=== PATIENT | male | born 1935 | race Caucasian/White ===

== ENCOUNTER → 2024-02-18 | Outpatient (CLI) | payer MEDICARE, OTHER, SELFPAY ==
[2024-02-18 15:26] LABS: Basophils # (Auto) 0.1 Thou/mm3 (0.0-0.2); Basophils % (Auto) 2 % (0-2.5); Eosinophils # (Auto) 0.3 Thou/mm3 (0.0-0.5); Eosinophils % (Auto) 6 % (0-10); Hematocrit 35.9 % (41.0-53.0); Hemoglobin 11.8 g/dL (13.5-16.0); Immature Granulocytes % (Auto) 0 % (0-0); Immature Granulocytes Auto 0.01 Thou/mm3 (0.00-0.00); Lymphocytes # (Auto) 1.3 Thou/mm3 (1.0-4.8); Lymphocytes % (Auto) 31 % (10-50); Mean Corpuscular HGB Conc 32.9 g/dl (31.0-37.0); Mean Corpuscular Hemoglobin 31.1 pg (25.0-35.0); Mean Corpuscular Volume 95 fL (80-100); Monocytes # (Auto) 0.7 Thou/mm3 (0.0-0.8); Monocytes % (Auto) 16 % (0-12); Neutrophils # (Auto) 1.8 Thou/mm3 (1.8-7.7); Neutrophils % (Auto) 44 % (37-80); Nucleated Red Blood Cell % 0 /100 WBC (0); Platelet Count 153 Thou/mm3 (140-440); RDW Standard Deviation 54.9 fL (35.1-43.9); White Blood Count 4.1 Thou/mm3 (3.8-10.6)
[2024-02-18 15:41] LABS: Folate 23.76 ng/mL (>5.38); Vitamin B12 264 pg/mL (211-911)
[2024-02-18 15:44] LABS: Ferritin 18 ng/mL (10.5-307.3); Total Iron Binding Capacity 353 mcg/dL (250-425)
[2024-02-18 15:46] LABS: Alanine Aminotransferase 16 U/L (10-49); Albumin, Serum 4.1 gm/dL (3.4-4.8); Albumin/Globulin Ratio 1.5 (1.2-2.2); Alkaline Phosphatase 58 U/L (46-116); Anion Gap 6 (7-16); Aspartate Amino Transferase 21 U/L (0-34); BUN/Creatinine Ratio 20 Ratio (12-20); Bilirubin,Total 0.7 mg/dL (0.3-1.2); Blood Urea Nitrogen 20 mg/dL (9-23); Calcium 9.2 mg/dL (8.3-10.6); Calcium (Corrected) 9.2 mg/dL (8.5-10.1); Carbon Dioxide 30.3 mMol/L (20.0-31.0); Chloride 104 mMol/L (98-107); Globulin 2.8 gm/dL (2.3-3.5); Glucose 88 mg/dL (74-106); Osmolality,Calculated 281 (275-295); Potassium 3.3 mMol/L (3.4-5.1); Sodium 140 mMol/L (136-145); Total Protein 6.9 gm/dL (5.7-8.2); eGFR > 60 See Note
[2024-02-18 15:54] LABS: Iron 76 mcg/dL (65-175); Percent Iron Saturation 21 % (20-55); Unsaturated Iron Binding 277 (225-295)
[2024-02-23 03:04] LABS: Albumin 3.8 g/dL (3.8-4.8); Alpha-1-Globulin 0.2 g/dL (0.2-0.3); Alpha-2-Globulin 0.5 g/dL (0.5-0.9); Beta-1-Globulin 0.4 g/dL (0.4-0.6); Beta-2-globulin 0.4 g/dL (0.2-0.5); Gamma Globulin 1.3 g/dL (0.8-1.7); Kappa Light Chain, Free 53.5 mg/L (3.3-19.4); Lambda Light Chain, Free 27.1 mg/L (5.7-26.3)
[2024-02-24 07:40] LABS: Kappa/Lambda, Free Ratio 1.97 (0.26-1.65); Protein, total, serum 6.8 g/dL (6.1-8.1)
== END | disposition home or self-care (01) ==
LOC: SCTO 13:29
PROVIDERS: PCP Family Medicine; Referring Provider Internal Medicine Hematology & Oncology; Visit Provider Internal Medicine Hematology & Oncology
DX: C90.01 Multiple myeloma in remission (principal)
CPT/HCPCS: 36415; 80053; 82607; 82728; 82746; 83521; 83540; 83550; 84153; 84155; 84165; 85025; 86334

== ENCOUNTER 2024-03-02 13:10 | Outpatient (RCR) | payer MEDICARE, OTHER, SELFPAY ==
--- NOTE | 2024-03-03 06:35 | CTCFLWUP_ITS ---
Patient: JUAN MOSS : 1935 Page 4 of 4 FOLLOW UP NOTE DATE OF SERVICE: 03/02/2024 NAME: JUAN MOSS ACCOUNT: [id number] : 1935 AGE: 88 DIAGNOSIS: 1.multiple myeloma status post bone marrow transplantation (07/24/2012), currently on Revli mid 5 mg p.o. daily. #2 urinary frequency #3 frailty from advanced age as well as medical conditions REASON FOR TODAY?S VISIT patient is 88-year-old male who is accompanied by his to the clinic vis it. Patient is here to review his bone scan. He feels fatigued tired. He has been feeling this for many months. He takes his Revlimid as prescribed and tolerating well HISTORY OF PRESENT ILLNESS: Juan Browning is a 88-year-old male with history of multiple myeloma status post bone marrow transplantation at [facility] on 07/24/2012. Since then he has been on main tenance Revlimid. 09/29/2018: Serum immunofixation studies did not show any monoclonal proteins. [place] titative immunoglobulin level showed IgA levels to be 441. Upper limit of normal is 320. 04/13/2019: Serum immunofixation studies show trace concentration band in the gamma region as describe d above. IgA 463 (70?320). 07/13/2019: IgA 473 (70?320) 08/05/2019: Bone marrow biopsy and aspiration? 08/17/2019: X-ray of the lumbar spine? 09/08/2019: Bone density test? 04/21/2020: B12 level 193. 10/10/2020: Hemoglobin 12.3, WBC 3.5, ANC 1.6, platelets 168,000. Creatinine 0.9, IgA 438, IgG 1176. [place]/lambda ratio 1.59. 02/13/2021: CT scan of the abdomen and pelvis with out IV contrast? 11/28/2021 Quantitative immunoglobulin levels? 05/24/2022: Lab 11/28/2022: IgA 481, IgG 1343. 06/10/2023: No monoclonal proteins were identified on immunofixation electrophoresis. PAST MEDICAL HISTORY: PAST SURGICAL HISTORY: MEDICATIONS: 1. Adult Low Dose Aspirin - 81 mg Each Day 2. amlodipine - 5 mg Each Day 3. Calcium with Vitamin D - 2 tab Daily 4. lenalidomide - 5 mg 1 Capsule Daily 5. oxycodone - 5 mg Every 4 Hours 6. POTASSIUM - 1 tab Daily 7. tamsulosin - 0.4 mg 1 Capsule Daily Medications Last Reconciled by Ashley Malone MA on 06/19/2023 ALLERGIES: No Known Drug Allergies REVIEW OF SYSTEMS: Neurological: No headache, seizures or blurring of vision. Gastrointestinal: No nausea, vomiting, diarrhea or constipation. Cardiovascular: No palpitations or angina pains. Respiratory: No cough, chest pain or shortness of breath. PHYSICAL EXAMINATION: VITAL SIGNS: Alert oriented x 4 ECOG Performance Status: 2 - Symptomatic; ambulatory; capable of self-care; >50% of waking hrs. not i n bed Frail male neck is supple. No adenopathy in the neck, axillary and inguinal region. Chest clear to auscultation. No wheezes or rails audible. CVS rhythm regular. No murmurs or gallops present. Abdomen is soft. Extremities no clubbing or cyanosis noted. 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 Moss is on maintenance Revlimid 5 mg p.o. daily. Bone marrow biopsy and aspiration (08/05/2019) negative for myeloma. Labs reviewed serum immunofixation shows no monoclonal proteins detected by immunofixation studies Beta-2 microglobulin 2.35 I discussed with the patient that he is becoming anemic since last 2 to 3 years and also his kidney f unction has gone down Serum immunofixation and SPEP do not indicate any myeloma His beta-2 microglobulin [place] lambda chain ratio have mildly increased Bone scan is concerning for lesions in the spine as shown hypermetabolism Will do bone marrow biopsy RTC after the bone marrow biopsy results and labs #2 chronic low water intake secondary to frequent micturition likely from BPH all his lab abnormalities can be from his kidney Patient do not drink enough water Patient does not want to use bathroom again and again and have not followed up with urology recommend ation PSA resulted back as normal Electronically signed by Dr Thorne CC: Bakari?Ronnie,? PCP: Janeth Hsu Referring: Janeth Hsu This document was completed utilizing speech recognition software. Grammatical errors, random word in sertions, pronoun errors, and incomplete sentences are an occasional consequence of this system due t o software limitations, ambient noise, and hardware issues. Any formal questions or concerns about th e content, text or information contained within the body of this dictation should be directly address ed to the provider for clarification.
== END 2024-03-31 23:59 | disposition home or self-care (01) ==
LOC: SCTC 13:10
PROVIDERS: PCP Family Medicine; Referring Provider Family Medicine; Visit Provider Internal Medicine Hematology & Oncology
DX: Z08 Encounter for follow-up examination after completed treatment for malignant neoplasm (principal); Z85.79 Personal history of other malignant neoplasms of lymphoid, hematopoietic and related tissues; Z94.81 Bone marrow transplant status
CPT/HCPCS: 99212; G0463

== ENCOUNTER → 2024-03-09 | Outpatient (CLI) | payer MEDICARE, OTHER, SELFPAY ==
[2024-03-09 16:46] LABS: Basophils # (Auto) 0.1 Thou/mm3 (0.0-0.2); Basophils % (Auto) 2 % (0-2.5); Eosinophils # (Auto) 0.2 Thou/mm3 (0.0-0.5); Eosinophils % (Auto) 6 % (0-10); Hematocrit 34.8 % (41.0-53.0); Hemoglobin 11.5 g/dL (13.5-16.0); Immature Granulocytes % (Auto) 0 % (0-0); Immature Granulocytes Auto 0.01 Thou/mm3 (0.00-0.00); Lymphocytes # (Auto) 1.1 Thou/mm3 (1.0-4.8); Lymphocytes % (Auto) 30 % (10-50); Mean Corpuscular Hemoglobin 31.4 pg (25.0-35.0); Mean Corpuscular Volume 95 fL (80-100); Monocytes # (Auto) 0.6 Thou/mm3 (0.0-0.8); Monocytes % (Auto) 16 % (0-12); Neutrophils # (Auto) 1.7 Thou/mm3 (1.8-7.7); Neutrophils % (Auto) 46 % (37-80); Nucleated Red Blood Cell % 0 /100 WBC (0); Platelet Count 146 Thou/mm3 (140-440); RDW Standard Deviation 54.6 fL (35.1-43.9); Red Blood Count 3.66 Miln/mm3 (4.50-5.90); White Blood Count 3.7 Thou/mm3 (3.8-10.6)
[2024-03-09 17:01] LABS: Alanine Aminotransferase 32 U/L (10-49); Albumin/Globulin Ratio 1.5 (1.2-2.2); Alkaline Phosphatase 67 U/L (46-116); Anion Gap 8 (7-16); Aspartate Amino Transferase 37 U/L (0-34); BUN/Creatinine Ratio 21 Ratio (12-20); Bilirubin,Total 0.6 mg/dL (0.3-1.2); Blood Urea Nitrogen 19 mg/dL (9-23); Carbon Dioxide 29.7 mMol/L (20.0-31.0); Chloride 104 mMol/L (98-107); Creatinine (Component) 0.9 mg/dL (0.6-1.3); Globulin 2.7 gm/dL (2.3-3.5); Glucose 73 mg/dL (74-106); Osmolality,Calculated 284 (275-295); Potassium 3.6 mMol/L (3.4-5.1); Sodium 142 mMol/L (136-145); Total Protein 6.7 gm/dL (5.7-8.2); eGFR > 60 See Note
[2024-03-14 13:50] LABS: Albumin 3.6 g/dL (3.8-4.8); Alpha-1-Globulin 0.2 g/dL (0.2-0.3); Alpha-2-Globulin 0.5 g/dL (0.5-0.9); Beta-1-Globulin 0.5 g/dL (0.4-0.6); Beta-2-globulin 0.4 g/dL (0.2-0.5); Gamma Globulin 1.3 g/dL (0.8-1.7); Kappa Light Chain, Free 54.3 mg/L (3.3-19.4)
[2024-03-16 06:56] LABS: Kappa/Lambda, Free Ratio 1.87 (0.26-1.65); Protein, total, serum 6.5 g/dL (6.1-8.1)
== END | disposition home or self-care (01) ==
LOC: SCTO 15:41
PROVIDERS: PCP Family Medicine; Referring Provider Internal Medicine Hematology & Oncology; Visit Provider Internal Medicine Hematology & Oncology
DX: C90.01 Multiple myeloma in remission (principal)
CPT/HCPCS: 36415; 80053; 83521; 84155; 84165; 85025; 86334

== ENCOUNTER 2024-03-16 06:59 | Outpatient (CLI) | payer MEDICARE, OTHER, SELFPAY ==
[2024-03-16 07:54] LABS: Basophils # (Auto) 0.1 Thou/mm3 (0.0-0.2); Basophils % (Auto) 3 % (0-2.5); Eosinophils # (Auto) 0.1 Thou/mm3 (0.0-0.5); Eosinophils % (Auto) 3 % (0-10); Hematocrit 36.4 % (41.0-53.0); Immature Granulocytes % (Auto) 0 % (0-0); Immature Granulocytes Auto 0.01 Thou/mm3 (0.00-0.00); Lymphocytes % (Auto) 29 % (10-50); Mean Corpuscular Hemoglobin 31.3 pg (25.0-35.0); Mean Corpuscular Volume 95 fL (80-100); Monocytes # (Auto) 0.7 Thou/mm3 (0.0-0.8); Monocytes % (Auto) 20 % (0-12); Neutrophils # (Auto) 1.6 Thou/mm3 (1.8-7.7); Neutrophils % (Auto) 45 % (37-80); Nucleated Red Blood Cell % 0 /100 WBC (0); Platelet Count 169 Thou/mm3 (140-440); RDW Standard Deviation 53.3 fL (35.1-43.9); Red Blood Count 3.84 Miln/mm3 (4.50-5.90); White Blood Count 3.5 Thou/mm3 (3.8-10.6)
[2024-03-16 08:03] LABS: Partial Thromboplastin Time 25.8 Seconds (22.0-36.0); Prothrombin Time 10.9 Seconds (9.0-12.2)
[2024-03-16 08:07] LABS: Blood Urea Nitrogen 23 mg/dL (9-23); Estimated Creatinine Clearance 40.1 mL/min (>60); eGFR > 60 See Note
[2024-03-16 08:12] VITALS: BP 142/75; PULSE 64; RESP 16; TEMP 36.7; O2SAT 98
--- NOTE | 2024-03-16 08:30 | XR_ITS ---
Examination: CT-guided percutaneous bone marrow aspiration right posterior superior iliac crest CT-guided percutaneous bone biopsy deep right posterior superior iliac crest INDICATIONS: Diagnosis multiple myeloma Date and time of procedure: March 16, 2024 1013 hours Informed consent provided. A timeout was completed verifying correct patient, procedure, site and positioning. Technique: Axial 3 mm sections were obtained for localization of the right posterior superior iliac crest Appropriate area is marked. The patient's site was prepped and draped in sterile fashion Maximal sterile barrier technique utilized, including hand hygiene Local anesthesia was obtained with 1% lidocaine. Low dose protocols were performed. One or more of the following dose reduction techniques were used; automated exposure control, adjustment of the mA and/or KV according to patient size, use of iterative reconstruction technique. Utilizing CT fluoroscopic guidance 14-gauge bone biopsy needle placed in the posterior superior iliac crest on the right 5 cc marrow aspirate obtained 5 cm bone core obtained Patient appears in stable condition during this procedure. At completion of the procedure, the patient is in satisfactory condition. Estimated blood loss 2 cc Complete pathology report to follow. Impression: Successful CT-guided percutaneous bone marrow aspiration right posterior superior iliac crest Successful CT-guided bone biopsy deep right posterior superior iliac crest
[2024-03-16 08:38] LABS: Flow Cytometry* See Sep Rpt
[2024-03-16] MEDS: SODIUM CHLORIDE 0.9% 500 ML 100 ML 20 ML IV (09:22)
[2024-03-16] MEDS: fentaNYL CIT INJ 50 mCg/ML AMP 2ML 25 MCG IV (09:39)
[2024-03-16 10:37] VITALS: BP 117/54; PULSE 87; RESP 16; O2SAT 99
[2024-03-16 10:50] VITALS: BP 119/75; PULSE 91; RESP 16; O2SAT 99
[2024-03-16 11:12] VITALS: BP 108/73; PULSE 82; RESP 16; TEMP 36.7; O2SAT 97
== END 2024-03-16 11:35 | disposition home or self-care (01) ==
PROVIDERS: Radiology Diagnostic Radiology; PCP Family Medicine; Referring Provider Internal Medicine Hematology & Oncology; Visit Provider Internal Medicine Hematology & Oncology
DX: C90.01 Multiple myeloma in remission (principal); Z01.812 Encounter for preprocedural laboratory examination
CPT/HCPCS: 38221; 36415; 77012; 82565; 84520; 85025; 85610; 85730; J3010; J7040

== ENCOUNTER → 2024-04-06 | Outpatient (BNVA) | payer MEDICARE, OTHER, SELFPAY | END | disposition home or self-care (01) | PROVIDERS: PCP Family Medicine; Referring Provider Family Medicine; Visit Provider Urology | DX: N40.1 Benign prostatic hyperplasia with lower urinary tract symptoms (principal); N39.498 Other specified urinary incontinence; N13.8 Other obstructive and reflux uropathy; C90.00 Multiple myeloma not having achieved remission; I10 Essential (primary) hypertension; J44.9 Chronic obstructive pulmonary disease, unspecified | CPT/HCPCS: 81003; 99212; G0463 ==

== ENCOUNTER → 2024-05-06 | Outpatient (CLI) | payer MEDICARE, OTHER, SELFPAY ==
[2024-05-06 18:03] LABS: Amphetamine/Methamp Scrn,U Negative (Negative); Barbiturate Screen,Urine Negative (Negative); Benzodiazepines Screen,Urine Negative (Negative); Benzoylecgonine Screen, Ur Negative (Negative); Fentanyl Screen,Urine Negative (Negative); Opiate Screen,Urine Negative (Negative); THC Screen,Urine Negative (Negative)
== END | disposition home or self-care (01) ==
LOC: SLDO 16:21
PROVIDERS: PCP Family Medicine; Referring Provider Family Medicine; Visit Provider Family Medicine
DX: M54.12 Radiculopathy, cervical region (principal); Z71.51 Drug abuse counseling and surveillance of drug abuser
CPT/HCPCS: 80307

== ENCOUNTER 2024-05-07 13:07 | Outpatient (RCR) | payer MEDICARE, OTHER, SELFPAY ==
--- NOTE | 2024-05-10 22:20 | CTCFLWUP_ITS ---
Patient: JUAN MOSS : 1935 Page 3 of 4 FOLLOW UP NOTE DATE OF SERVICE: 05/07/2024 NAME: JUAN MOSS ACCOUNT: [id number] : 1935 AGE: 89 INTERVAL HISTORY: Patient is companied by his . Patient is here to follow-up on his bone marrow biopsy results. 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 daily. #2 urinary frequency #3 frailty from advanced age as well as medical conditions DATE OF DIAGNOSIS: 07/24/2012 STAGE/TNM: Multiple myeloma status bone marrow transplant in 2012 at [facility] TREATMENT HISTORY: Care?Plan Start?Date Cycle Day Intent B?12 05/02/2020 1 28 Palliative B?12?monthly 12/07/2021 1 28 Palliative B?12?monthly 11/12/2023 1 28 Palliative HISTORY OF PRESENT ILLNESS: Juan Browning is a 89-year-old male with history of multiple myeloma status post bone marrow transplantation at [facility] on 07/24/2012. Since then he has been on maintenance Revlimid. 09/29/2018: Serum immunofixation studies did not show any monoclonal proteins. Quantitative immunoglobulin level showed IgA levels to be 441. Upper limit of normal is 320. 04/13/2019: Serum immunofixation studies show trace concentration band in the gamma region as described above. IgA 463 (70?320). 07/13/2019: IgA 473 (70?320) 08/05/2019: Bone marrow biopsy and aspiration? 08/17/2019: X-ray of the lumbar spine? 09/08/2019: Bone density test? 04/21/2020: B12 level 193. 10/10/2020: Hemoglobin 12.3, WBC 3.5, ANC 1.6, platelets 168,000. Creatinine 0.9, IgA 438, IgG 1176. [place]/lambda ratio 1.59. 02/13/2021: CT scan of the abdomen and pelvis with out IV contrast? 11/28/2021 Quantitative immunoglobulin levels? 05/24/2022: Lab 11/28/2022: IgA 481, IgG 1343. 06/10/2023: No monoclonal proteins were identified on immunofixation electrophoresis. OTHER MEDICAL HISTORY/CONDITIONS: FAMILY HISTORY: SOCIAL HISTORY: MEDICATIONS: 1. Adult Low Dose Aspirin - 81 mg Each Day 2. amlodipine - 5 mg Each Day 3. Calcium with Vitamin D - 2 tab Daily 4. finasteride - 1 mg 1 tab Daily 5. lenalidomide - 5 mg 1 Capsule Daily 6. oxycodone - 5 mg Every 4 Hours 7. POTASSIUM - 1 tab Daily Medications Last Reconciled by Fouzia Kyle MA on 05/07/2024 ALLERGIES: No Known Drug Allergies REVIEW OF SYSTEMS: A complete 14-point review of systems was performed and is negative except as noted in interval history. PHYSICAL EXAMINATION: VITAL SIGNS: Temperature?98.9, B/P?135/77, Oxygen?Saturation?98% Weight?122?lbs PAIN: 2 - Mild pain ECOG Performance Status: 1 - Symptomatic; ambulatory; restricted in strenuous activity Alert oriented x 4 Frail male neck is supple. No adenopathy in the neck, axillary and inguinal region. Chest clear to auscultation. No wheezes or rails audible. CVS rhythm regular. No murmurs or gallops present. Abdomen is soft. Extremities no clubbing or cyanosis noted. 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 Moss is on maintenance Revlimid 5 mg p.o. daily. Bone marrow biopsy and aspiration (08/05/2019) negative for myeloma. Labs reviewed serum immunofixation shows no monoclonal proteins detected by immunofixation studies Beta-2 microglobulin 2.35 I discussed with the patient that he is becoming anemic since last 2 to 3 years and also his kidney function has gone down Serum immuno?xation and SPEP do not Indicate any myeloma His beta- 2 microglobulin [place] lambda chain ratio have mildly increased Bone scan is concerning for lesions in the spine as shown hypermetabolism 03/16/2024 bone marrow biopsy reviewed and is normal No myeloma s cells bone marrow Patient have persistent fatigue Can do scan to see if patient have any residual tumor His bone marrow is negative and I have advised to stop Revlimid but patient is very reluctant to stop the drug I offered to decrease dose to 2.5 mg. Patient do not want to stop Revlimid Return with the labs #2 dehydration likely secondary to frequent micturition likely from BPH all his lab abnormalities can be from his kidney Patient do not drink enough water Patient does not want to use bathroom again and again and have not followed up with urology recommendation PSA resulted back as normal CBC CMP SPEP serum amino pheresis RETURN TO CLINIC: 6 months BILLING AND COMPLIANCE: I reviewed external records from providers outside my specialty as summarized above. I spent a total of 50 minutes on this patient?s care on the day of their visit excluding time spent related to any billed procedures. This time includes time spent with the patient as well as time spent documenting in the medical record, reviewing patients records and tests, obtaining history, placing orders, communicating with other healthcare professionals, counseling the patient, family or caregiver, and/or care coordination for the diagnoses above. Electronically Signed by: Alex Thorne MD T: 10:18 PM CC: Bakari?Ronnie? PCP: Gerald Hsu Referring: Gerald Hsu This document was completed utilizing speech recognition software. Grammatical errors, random word insertions, pronoun errors, and incomplete sentences are an occasional consequence of this system due to software limitations, ambient noise, and hardware issues. Any formal questions or concerns about the content, text or information contained within the body of this dictation should be directly addressed to the provider for clarification.
== END 2024-05-29 23:59 | disposition home or self-care (01) ==
LOC: SCTC 13:07
PROVIDERS: PCP Family Medicine; Referring Provider Family Medicine; Visit Provider Internal Medicine Hematology & Oncology
DX: C90.01 Multiple myeloma in remission (principal); Z94.81 Bone marrow transplant status; E86.0 Dehydration
CPT/HCPCS: 99212; G0463

== ENCOUNTER → 2024-07-02 | Outpatient (CLI) | payer MEDICARE, OTHER, SELFPAY ==
[2024-07-02 14:29] LABS: Amphetamine/Methamp Scrn,U Negative (Negative); Barbiturate Screen,Urine Negative (Negative); Benzodiazepines Screen,Urine Negative (Negative); Benzoylecgonine Screen, Ur Negative (Negative); Fentanyl Screen,Urine Negative (Negative); Opiate Screen,Urine Negative (Negative); THC Screen,Urine Negative (Negative)
== END | disposition home or self-care (01) ==
LOC: SLDO 13:42
PROVIDERS: PCP Family Medicine; Referring Provider Family Medicine; Visit Provider Family Medicine
DX: M54.50 Low back pain, unspecified (principal); Z71.51 Drug abuse counseling and surveillance of drug abuser
CPT/HCPCS: 80307

== ENCOUNTER → 2024-07-23 | Outpatient (CLI) | payer MEDICARE, OTHER, SELFPAY ==
[2024-07-23 11:41] LABS: Basophils # (Auto) 0.1 Thou/mm3 (0.0-0.2); Basophils % (Auto) 3 % (0-2.5); Eosinophils # (Auto) 0.3 Thou/mm3 (0.0-0.5); Eosinophils % (Auto) 8 % (0-10); Hematocrit 35.4 % (41.0-53.0); Hemoglobin 11.6 g/dL (13.5-16.0); Immature Granulocytes % (Auto) 0 % (0-0); Immature Granulocytes Auto 0.01 Thou/mm3 (0.00-0.00); Lymphocytes # (Auto) 0.9 Thou/mm3 (1.0-4.8); Lymphocytes % (Auto) 27 % (10-50); Mean Corpuscular HGB Conc 32.8 g/dl (31.0-37.0); Mean Corpuscular Hemoglobin 30.9 pg (25.0-35.0); Mean Corpuscular Volume 94 fL (80-100); Monocytes # (Auto) 0.6 Thou/mm3 (0.0-0.8); Monocytes % (Auto) 19 % (0-12); Neutrophils # (Auto) 1.4 Thou/mm3 (1.8-7.7); Neutrophils % (Auto) 43 % (37-80); Nucleated Red Blood Cell % 0 /100 WBC (0); Platelet Count 150 Thou/mm3 (140-440); RDW Standard Deviation 54.4 fL (35.1-43.9); Red Blood Count 3.75 Miln/mm3 (4.50-5.90); White Blood Count 3.3 Thou/mm3 (3.8-10.6)
[2024-07-23 11:49] LABS: Alanine Aminotransferase 16 U/L (10-49); Albumin, Serum 3.9 gm/dL (3.4-4.8); Albumin/Globulin Ratio 1.4 (1.2-2.2); Alkaline Phosphatase 52 U/L (46-116); Anion Gap 6 (7-16); Aspartate Amino Transferase 22 U/L (0-34); BUN/Creatinine Ratio 23 Ratio (12-20); Bilirubin,Total 0.7 mg/dL (0.3-1.2); Blood Urea Nitrogen 25 mg/dL (9-23); Calcium (Corrected) 9.1 mg/dL (8.5-10.1); Carbon Dioxide 30.6 mMol/L (20.0-31.0); Chloride 106 mMol/L (98-107); Creatinine (Component) 1.1 mg/dL (0.6-1.3); Globulin 2.7 gm/dL (2.3-3.5); Glucose 94 mg/dL (74-106); Osmolality,Calculated 289 (275-295); Potassium 3.9 mMol/L (3.4-5.1); Sodium 143 mMol/L (136-145); Total Protein 6.6 gm/dL (5.7-8.2); eGFR > 60 See Note
[2024-07-29 08:50] LABS: Albumin 3.6 g/dL (3.8-4.8); Alpha-1-Globulin 0.3 g/dL (0.2-0.3); Alpha-2-Globulin 0.6 g/dL (0.5-0.9); Beta-1-Globulin 0.4 g/dL (0.4-0.6); Beta-2-globulin 0.4 g/dL (0.2-0.5); Gamma Globulin 1.3 g/dL (0.8-1.7); Kappa Light Chain, Free 54.8 mg/L (3.3-19.4)
[2024-07-30 06:36] LABS: Beta 2 Microglobulin 2.17 mg/L (< OR = 2.51); Kappa/Lambda, Free Ratio 1.89 (0.26-1.65); Protein, total, serum 6.6 g/dL (6.1-8.1)
== END | disposition home or self-care (01) ==
LOC: SCTO 10:26
PROVIDERS: PCP Family Medicine; Referring Provider Internal Medicine Hematology & Oncology; Visit Provider Internal Medicine Hematology & Oncology
DX: C90.01 Multiple myeloma in remission (principal)
CPT/HCPCS: 36415; 80053; 82232; 83521; 84155; 84165; 85025; 86334

== ENCOUNTER → 2024-08-05 | Outpatient (CLI) | payer MEDICARE, OTHER, SELFPAY ==
--- NOTE | 2024-08-05 15:44 | XR_ITS ---
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
== END | disposition home or self-care (01) ==
PROVIDERS: PCP Family Medicine; Referring Provider Internal Medicine Hematology & Oncology; Visit Provider Internal Medicine Hematology & Oncology
DX: M89.58 Osteolysis, other site (principal); C90.01 Multiple myeloma in remission
CPT/HCPCS: 77074

== ENCOUNTER 2024-08-18 09:52 | Outpatient (RCR) | payer MEDICARE, OTHER, SELFPAY ==
--- NOTE | 2024-08-05 13:02 | CTCFLWUP_ITS ---
Patient: JUAN MOSS : 1935 Page 2 of 2 FOLLOW UP NOTE DATE OF SERVICE: 08/04/2024 NAME: JUAN MOSS ACCOUNT: [id number] : 1935 AGE: 89 INTERVAL HISTORY: Galen, an 89-year-old male with multiple myeloma in remission since 2012 post- bone marrow transplant, presented with fatigue, tiredness, and weight loss (120 lbs). Labs showed mild anemia (Hgb 11.6) with low ferritin (21) indicating iron deficiency. Despite reluctance, maintenance therapy was discontinued for one month to assess impact on fatigue. Treatment plan included Venofer iron infusion pending insurance approval, oral B12 supplementation, and a metastatic bone survey to evaluate for bone involvement. Follow-up scheduled in 6 months. Chief Complaint Follow-up for multiple myeloma, fatigue and tiredness, weight loss History of Present Illness Galen segal, an 89-year-old male with a known history of multiple myeloma, presents for follow-up. The patient has been in remission since 2012, more than 12 years since his bone marrow transplant. The patient reports feeling very fatigued and tired. He has experienced a substantial weight loss, noting that his weight has dropped to 120 pounds, which he states is the lowest it has been since his initial myeloma diagnosis. The patient expresses concern about this weight loss and wonders if it could be related to iron deficiency. At the last visit, the patient was advised to hold his maintenance medication for multiple myeloma. However, he expresses reluctance and hesitation to stop the drug. The patient mentions that previous doctors had been allowing him to continue the medication with follow-ups every 6 months. The patient has not received iron supplementation in the past. He questions whether iron or B12 supplementation would improve his energy levels, noting that such treatments have not helped in the past. Medical History - Multiple myeloma, in remission since 2012 - Bone marrow transplant, more than 12 years ago - Mild anemia - Iron deficiency Surgical History - Bone marrow transplant, approximately 12 years ago (around 2012) Medications and Supplements - Maintenance medication for multiple myeloma - Patient advised to hold the medicine at last visit - Patient reluctant to stop the drug - Advised to stop taking for a month to see if patient feels better Social History - Living Situation: Patient appears to live independently, as there is no mention of caregivers or assisted living Laboratory, Imaging, and Diagnostic Test Results - Date: SatAug 04 2024 - Hemoglobin: 11.6 g/dL - MCV: 94 - Platelets: 150 - Creatinine: 1.1 (noted as normal kidney function) - Ferritin: 21 (noted as low) - Previous results: - Bone scan (December 2023): Positive - Protein electrophoresis: No abnormal protein noted Review of Systems General: Positive for fatigue and weight loss. 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 daily. 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 Since then he has been on maintenance Revlimid. 09/29/2018: Serum immunofixation studies did not show any monoclonal proteins. Quantitative immunoglobulin level showed IgA levels to be 441. Upper limit of normal is 320. 04/13/2019: Serum immunofixation studies show trace concentration band in the gamma region as described above. IgA 463 (70?320). 07/13/2019: IgA 473 (70?320) 08/05/2019: Bone marrow biopsy and aspiration? 08/17/2019: X-ray of the lumbar spine? 09/08/2019: Bone density test? 04/21/2020: B12 level 193. 10/10/2020: Hemoglobin 12.3, WBC 3.5, ANC 1.6, platelets 168,000. Creatinine 0.9, IgA 438, IgG 1176. [place]/lambda ratio 1.59. 02/13/2021: CT scan of the abdomen and pelvis with out IV contrast? 11/28/2021 Quantitative immunoglobulin levels? 05/24/2022: Lab 11/28/2022: IgA 481, IgG 1343. 06/10/2023: No monoclonal proteins were identified on immunofixation electrophoresis. OTHER MEDICAL HISTORY/CONDITIONS: FAMILY HISTORY: SOCIAL HISTORY: MEDICATIONS: 1. Adult Low Dose Aspirin - 81 mg Each Day 2. amlodipine - 5 mg Each Day 3. Calcium with Vitamin D - 2 tab Daily 4. finasteride - 1 mg 1 tab Daily 5. lenalidomide - 5 mg 1 Capsule Daily 6. oxycodone - 5 mg Every 4 Hours 7. POTASSIUM - 1 tab Daily Medications Last Reconciled by Fouzia Kyle MA on 08/04/2024 ALLERGIES: No Known Drug Allergies REVIEW OF SYSTEMS: A complete 14-point review of systems was performed and is negative except as noted in interval history. PHYSICAL EXAMINATION: VITAL SIGNS: B/P?150/69, Oxygen?Saturation?99% Weight?120?lbs PAIN: 2 - Mild pain ECOG Performance Status: 0 - Asymptomatic and fully active Alert oriented x 4 Frail male neck is supple. No adenopathy in the neck, axillary and inguinal region. Chest clear to auscultation. No wheezes or rails audible. CVS rhythm regular. No murmurs or gallops present. Abdomen is soft. Extremities no clubbing or cyanosis noted. LABORATORY DATA: I have personally reviewed and interpreted each of the patient?s relevant lab tests, abnormal findings are below: Date 03/16/24 07/23/24 ??WHITE?BLOOD?COUNT?(Thou/mm3) 3.5?L 3.3?L ??RED?BLOOD?COUNT?(Miln/mm3) 3.84?L 3.75?L ??HEMOGLOBIN?(gm/dl) 12.0?L 11.6?L ??HEMATOCRIT?(%) 36.4?L 35.4?L ??PLATELET?COUNT?(Thou/mm3) 169 150 ??NEUTROPHILS?%,?AUTO?(%) 45 43 ??LYMPH?%,?AUTO?(%) 29 27 ??NEUTROPHILS,?AUTO?(Thou/mm3) 1.6?L 1.4?L ??GLUCOSE,RANDOM?(mg/dL) ? 94 ??BLOOD?UREA?NITROGEN?(mg/dL) 23 25?H ??CREATININE?(mg/dL) ? 1.10 ??SODIUM?(mmol/L) ? 143 ??POTASSIUM?(mmol/L) ? 3.9 ??CHLORIDE?(mmol/L) ? 106 ??CrCl?(CandG)?(ml/min) ? 37.03 ??AST/SGOT?(Unit/L) ? 22 ??ALT/SGPT?(Unit/L) ? 16 ??ALKALINE?PHOSPHATASE?(Unit/L) ? 52 ??BILIRUBIN,?TOTAL?(mg/dL) ? 0.7 ??PROTEIN?TOTAL?(gm/dl) ? 6.6 ??ALBUMIN,?SERUM?(gm/dl) ? 3.9 ??GLOBULIN?(gm/dl) ? 2.7 ??ALBUMIN/GLOBULIN?RATIO ? 1.4 ??CALCIUM,?SERUM?(mg/dL) ? 9.0 ??CALCIUM?SERUM?(CORRECTED)?(mg/dL) ? 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 Moss is on maintenance Revlimid 5 mg p.o. daily. Bone marrow biopsy and aspiration (08/05/2019) negative for myeloma. Labs reviewed serum immunofixation shows no monoclonal proteins detected by immunofixation studies Beta-2 microglobulin 2.35 I discussed with the patient that he is becoming anemic since last 2 to 3 years and also his kidney function has gone down Serum immuno?xation and SPEP do not Indicate any myeloma His beta- 2 microglobulin [place] lambda chain ratio have mildly increased Bone scan is concerning for lesions in the spine as shown hypermetabolism 03/16/2024 bone marrow biopsy reviewed and is normal No myeloma s cells bone marrow Patient have persistent fatigue Can do scan to see if patient have any residual tumor His bone marrow is negative and I have advised to stop Revlimid but patient is very reluctant to stop the drug 89-year-old male with a history of multiple myeloma in remission since 2012, status post bone marrow transplant, presenting for follow-up with complaints of fatigue and weight loss. Multiple Myeloma in Remission Assessment: Patient has been in remission since 2013, more than 12 years post- bone marrow transplant. Recent labs show no evidence of myeloma, with no abnormal protein noted on electrophoresis. Hemoglobin is 11.6, MCV 94, platelets 150, and kidney function is normal at 1.1. Patient has been on maintenance therapy but is experiencing significant fatigue. Previously advised to hold medication, but patient is reluctant to discontinue. Plan: - Discontinue maintenance therapy for one month to assess impact on fatigue - Follow up in 6 months - Order metastatic bone survey to evaluate for any bone involvement Iron Deficiency Anemia Assessment: Patient presents with fatigue and mild anemia (Hgb 11.6). Iron studies reveal low ferritin at 21, indicating iron deficiency as the likely cause of fatigue and anemia. Plan: - Order iron infusion with Venofer, pending insurance approval - Schedule for iron infusion once approved by insurance - Recommend oral B12 supplementation - Educate patient on potential improvement in energy levels with iron repletion Weight Loss Assessment: Patient reports substantial weight loss, currently at 120 lbs. This is noted to be the lowest weight since initial myeloma diagnosis. Weight loss is likely multifactorial, potentially related to age-related changes in appetite and body composition, as well as possible contribution from iron deficiency. Plan: - Monitor weight at follow-up appointments - Reassess after iron repletion to determine if weight stabilizesReturn with the labs #2 dehydration likely secondary to frequent micturition likely from BPH all his lab abnormalities can be from his kidney Patient do not drink enough water Patient does not want to use bathroom again and again and have not followed up with urology recommendation PSA resulted back as normal CBC CMP SPEP serum amino pheresis ORDERS: Order # Description [id number] CBC + Comprehensive Metabolic Panel [id number] Lab Appointment [id number] CBC + Comprehensive Metabolic Panel [id number] Lab Appointment [id number] CBC + Comprehensive Metabolic Panel [id number] Lab Appointment RETURN TO CLINIC: BILLING AND COMPLIANCE: I reviewed external records from providers outside my specialty as summarized above. I spent a total of 50 minutes on this patient?s care on the day of their visit excluding time spent related to any billed procedures. This time includes time spent with the patient as well as time spent documenting in the medical record, reviewing patients records and tests, obtaining history, placing orders, communicating with other healthcare professionals, counseling the patient, family or caregiver, and/or care coordination for the diagnoses above. Electronically Signed by: Alex Thorne MD T: 12:59 PM CC: Bakari?Ronnie,? PCP: Janeth Hsu Referring: Janeth Hsu This document was completed utilizing speech recognition software. Grammatical errors, random word insertions, pronoun errors, and incomplete sentences are an occasional consequence of this system due to software limitations, ambient noise, and hardware issues. Any formal questions or concerns about the content, text or information contained within the body of this dictation should be directly addressed to the provider for clarification.
== END 2024-08-29 23:59 | disposition home or self-care (01) ==
LOC: SCTC 09:52
PROVIDERS: PCP Family Medicine; Referring Provider Family Medicine; Visit Provider Internal Medicine Hematology & Oncology
DX: C90.01 Multiple myeloma in remission (principal); Z94.81 Bone marrow transplant status; D50.9 Iron deficiency anemia, unspecified; R63.4 Abnormal weight loss; Z68.1 Body mass index [BMI] 19.9 or less, adult; E86.0 Dehydration
CPT/HCPCS: 96365; 96375; 99212; J2919; J3490; J7040; G0463

== ENCOUNTER → 2024-09-08 | Outpatient (CLI) | payer MEDICARE, OTHER, SELFPAY ==
[2024-09-08 12:43] LABS: Misc Send Out* See Sep Rpt
[2024-09-08 13:36] LABS: Amphetamine/Methamp Scrn,U Negative (Negative); Barbiturate Screen,Urine Negative (Negative); Benzodiazepines Screen,Urine Negative (Negative); Benzoylecgonine Screen, Ur Negative (Negative); Fentanyl Screen,Urine Negative (Negative); Opiate Screen,Urine Positive (Negative); THC Screen,Urine Negative (Negative)
== END | disposition home or self-care (01) ==
LOC: COPL 12:29
PROVIDERS: PCP Internal Medicine; Referring Provider Internal Medicine; Visit Provider Internal Medicine
DX: M54.50 Low back pain, unspecified (principal)
CPT/HCPCS: 80307

== ENCOUNTER 2024-09-15 14:25 | Outpatient (RCR) | payer MEDICARE, OTHER, SELFPAY | END 2024-09-28 23:59 | disposition home or self-care (01) | LOC: SCTC 14:25 | PROVIDERS: PCP Family Medicine; Referring Provider Family Medicine; Visit Provider Internal Medicine Hematology & Oncology | DX: D50.9 Iron deficiency anemia, unspecified (principal); C90.01 Multiple myeloma in remission; Z94.81 Bone marrow transplant status; E86.0 Dehydration; R63.4 Abnormal weight loss; Z68.1 Body mass index [BMI] 19.9 or less, adult | CPT/HCPCS: 96365; 96375; J1756; J2919; J3490; J7040; J7050 ==

== ENCOUNTER → 2024-09-28 | Outpatient (BNVA) | payer MEDICARE, OTHER, SELFPAY | END | disposition home or self-care (01) | PROVIDERS: PCP Family Medicine; Referring Provider Family Medicine; Visit Provider Urology | DX: N40.1 Benign prostatic hyperplasia with lower urinary tract symptoms (principal); N13.8 Other obstructive and reflux uropathy; N39.498 Other specified urinary incontinence; R35.0 Frequency of micturition; I10 Essential (primary) hypertension; Z86.73 Personal history of transient ischemic attack (TIA), and cerebral infarction without residual deficits; J44.9 Chronic obstructive pulmonary disease, unspecified | CPT/HCPCS: 99212; G0463 ==

== ENCOUNTER 2024-10-13 12:52 | Outpatient (RCR) | payer MEDICARE, OTHER, SELFPAY | END 2024-10-29 23:59 | disposition home or self-care (01) | LOC: SCTC 12:52 | PROVIDERS: PCP Internal Medicine; Referring Provider Internal Medicine; Visit Provider Internal Medicine Hematology & Oncology | DX: D50.9 Iron deficiency anemia, unspecified (principal); C90.01 Multiple myeloma in remission; Z94.81 Bone marrow transplant status; R63.4 Abnormal weight loss; Z68.1 Body mass index [BMI] 19.9 or less, adult | CPT/HCPCS: 96365; A4216; J1756; J7040; J7050 ==

== ENCOUNTER → 2024-10-27 | Outpatient (CLI) | payer MEDICARE, OTHER, SELFPAY ==
--- NOTE | 2024-10-27 14:11 | XR_ITS ---
Examination: Lumbar spine, 5 views Technique: Lumbar spine AP, lateral, coned lateral lower lumbar spine, bilateral obliques 5 views Exam date and time: October 27, 2024 1428 hours Comparison August 17, 2019 INDICATIONS: Back pain 13 years. 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
[2024-10-27 15:25] LABS: Basophils # (Auto) 0.0 Thou/mm3 (0.0-0.2); Basophils % (Auto) 1 % (0-2.5); Eosinophils # (Auto) 0.1 Thou/mm3 (0.0-0.5); Eosinophils % (Auto) 1 % (0-10); Hematocrit 39.9 % (41.0-53.0); Hemoglobin 13.2 g/dL (13.5-16.0); Immature Granulocytes Auto 0.01 Thou/mm3 (0.00-0.00); Lymphocytes # (Auto) 0.9 Thou/mm3 (1.0-4.8); Lymphocytes % (Auto) 17 % (10-50); Mean Corpuscular HGB Conc 33.1 g/dl (31.0-37.0); Mean Corpuscular Hemoglobin 32.3 pg (25.0-35.0); Mean Corpuscular Volume 98 fL (80-100); Monocytes # (Auto) 0.5 Thou/mm3 (0.0-0.8); Monocytes % (Auto) 10 % (0-12); Neutrophils # (Auto) 3.7 Thou/mm3 (1.8-7.7); Neutrophils % (Auto) 71 % (37-80); Nucleated Red Blood Cell # 0.00 Thou/mm3 (0.00-0.00); Nucleated Red Blood Cell % 0 /100 WBC (0); Platelet Count 174 Thou/mm3 (140-440); RDW Standard Deviation 51.5 fL (35.1-43.9); Red Blood Count 4.09 Miln/mm3 (4.50-5.90); White Blood Count 5.2 Thou/mm3 (3.8-10.6)
[2024-10-27 15:53] LABS: Alanine Aminotransferase 13 U/L (10-49); Albumin, Serum 4.3 gm/dL (3.4-4.8); Albumin/Globulin Ratio 1.7 (1.2-2.2); Alkaline Phosphatase 49 U/L (46-116); Anion Gap 10 (7-16); Aspartate Amino Transferase 20 U/L (0-34); BUN/Creatinine Ratio 28 Ratio (12-20); Bilirubin,Total 0.8 mg/dL (0.3-1.2); Blood Urea Nitrogen 25 mg/dL (9-23); Calcium 9.3 mg/dL (8.3-10.6); Calcium (Corrected) 9.3 mg/dL (8.5-10.1); Carbon Dioxide 30.4 mMol/L (20.0-31.0); Chloride 104 mMol/L (98-107); Creatinine (Component) 0.9 mg/dL (0.6-1.3); Globulin 2.5 gm/dL (2.3-3.5); Glucose 92 mg/dL (74-106); Osmolality,Calculated 291 (275-295); Potassium 3.8 mMol/L (3.4-5.1); Sodium 144 mMol/L (136-145); Total Protein 6.8 gm/dL (5.7-8.2); eGFR > 60 See Note
[2024-10-31 23:32] LABS: Albumin 4.3 g/dL (3.8-4.8); Alpha-1-Globulin 0.2 g/dL (0.2-0.3); Alpha-2-Globulin 0.5 g/dL (0.5-0.9); Beta-1-Globulin 0.4 g/dL (0.4-0.6); Beta-2-globulin 0.4 g/dL (0.2-0.5); Gamma Globulin 1.1 g/dL (0.8-1.7); Kappa Light Chain, Free 21.4 mg/L (3.3-19.4); Lambda Light Chain, Free 15.0 mg/L (5.7-26.3)
[2024-11-02 11:01] LABS: Beta 2 Microglobulin 1.94 mg/L (< OR = 2.51); Kappa/Lambda, Free Ratio 1.43 (0.26-1.65); Protein, total, serum 6.9 g/dL (6.1-8.1)
== END | disposition home or self-care (01) ==
LOC: CDIM 14:02 → SCTO 14:52
PROVIDERS: PCP Internal Medicine; Referring Provider Internal Medicine Hematology & Oncology; Visit Provider Radiology Diagnostic Radiology
DX: M54.50 Low back pain, unspecified (principal); C90.01 Multiple myeloma in remission
CPT/HCPCS: 36415; 72110; 80053; 82232; 83521; 84155; 84165; 85025; 86334

== ENCOUNTER 2024-11-27 10:49 | Emergency (ER) | payer MEDICARE, OTHER, SELFPAY ==
[2024-11-27 10:58] VITALS: BP 106/59; PULSE 51; RESP 18; TEMP 36.9; O2SAT 96
--- NOTE | 2024-11-27 11:08 | XR_ITS ---
Examination: CT abdomen and pelvis without contrast. Coronal 3-D reconstructions. Sagittal 2-D reconstructions. Date and time of exam:November 27, 2024 1123 hours Comparison February 11, 2021 INDICATIONS: Generalized abdominal pain beginning 2 days ago CTDI: vol (mGy): 4.88 DLP: (mGycm): 267 Technique: Axial images of the abdomen have been obtained, 3 mm slice thickness Intravenous contrast material has not been administered. Low dose protocols were performed. One or more of the following dose reduction techniques were used; automated exposure control, adjustment of the mA and/or KV according to patient size, use of iterative reconstruction technique. 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
--- NOTE | 2024-11-27 11:08 | PD.EDRME ---
Rapid Medical Screening Exam RME Arrival date/time: 11/27/24 10:49 89-year-old male with a history of hypertension, multiple myeloma in remission since 2012, presents to the emergency room with a chief complaint of epigastric 10 out of 10 pain x 2 days I have greeted and performed a focused initial assessment of this patient. A comprehensive ED assessment and evaluation of the patient, analysis of all test results, and completion of the medical decision making process will be conducted by additional ED providers. Chief Complaint: Abdominal Pain Time Seen by Provider: 11/27/24 11:00 Vital signs: Vital Signs Temperature 98.4 F 11/27/24 10:58 Pulse Rate 51 L 11/27/24 10:58 Respiratory Rate 18 11/27/24 10:58 Blood Pressure 106/59 L 11/27/24 10:58 Pulse Oximetry (%) 96 11/27/24 10:58 Oxygen Delivery Method Room Air 11/27/24 10:58 Vital signs reviewed by provider: Yes
[2024-11-27] MEDS: ONDANSETRON ODT 4 MG TABRAP PO (11:12)
[2024-11-27 11:58] LABS: Basophils # (Auto) 0.0 Thou/mm3 (0.0-0.2); Basophils % (Auto) 0 % (0-2.5); Eosinophils # (Auto) 0.0 Thou/mm3 (0.0-0.5); Eosinophils % (Auto) 0 % (0-10); Hematocrit 34.5 % (41.0-53.0); Hemoglobin 11.7 g/dL (13.5-16.0); Immature Granulocytes Auto 0.03 Thou/mm3 (0.00-0.00); Lymphocytes # (Auto) 0.4 Thou/mm3 (1.0-4.8); Lymphocytes % (Auto) 4 % (10-50); Mean Corpuscular HGB Conc 33.9 g/dl (31.0-37.0); Mean Corpuscular Hemoglobin 32.8 pg (25.0-35.0); Mean Corpuscular Volume 97 fL (80-100); Monocytes # (Auto) 0.7 Thou/mm3 (0.0-0.8); Monocytes % (Auto) 7 % (0-12); Neutrophils # (Auto) 8.3 Thou/mm3 (1.8-7.7); Neutrophils % (Auto) 88 % (37-80); Nucleated Red Blood Cell # 0.00 Thou/mm3 (0.00-0.00); Nucleated Red Blood Cell % 0 /100 WBC (0); Platelet Count 159 Thou/mm3 (140-440); RDW Standard Deviation 47.2 fL (35.1-43.9); Red Blood Count 3.57 Miln/mm3 (4.50-5.90); White Blood Count 9.4 Thou/mm3 (3.8-10.6)
[2024-11-27 12:02] VITALS: BP 103/61; PULSE 52; RESP 18; TEMP 36.4; O2SAT 97
[2024-11-27 12:13] LABS: Alanine Aminotransferase 38 U/L (10-49); Albumin, Serum 4.1 gm/dL (3.4-4.8); Albumin/Globulin Ratio 1.9 (1.2-2.2); Alkaline Phosphatase 50 U/L (46-116); Anion Gap 12 (7-16); Aspartate Amino Transferase 89 U/L (0-34); BUN/Creatinine Ratio 20 Ratio (12-20); Bilirubin,Total 1.1 mg/dL (0.3-1.2); Blood Urea Nitrogen 18 mg/dL (9-23); Calcium 9.4 mg/dL (8.3-10.6); Calcium (Corrected) 9.4 mg/dL (8.5-10.1); Carbon Dioxide 24.8 mMol/L (20.0-31.0); Chloride 104 mMol/L (98-107); Creatinine (Component) 0.9 mg/dL (0.6-1.3); Estimated Creatinine Clearance 43.4 mL/min (>60); Globulin 2.2 gm/dL (2.3-3.5); Glucose 122 mg/dL (74-106); Lipase 21 U/L (12-53); Osmolality,Calculated 284 (275-295); Potassium 3.6 mMol/L (3.4-5.1); Sodium 141 mMol/L (136-145); Total Protein 6.3 gm/dL (5.7-8.2); eGFR > 60 See Note
--- NOTE | 2024-11-27 12:24 | PD.EDABDPN ---
ED Abdominal Pain RME/HPI General Chief Complaint: Abdominal Pain Stated complaint: ABD PAIN SINCE YESTERDAY, RECENT CANCER TREATMENT Time seen by provider: 11/27/24 11:00 Arrival date/time: 11/27/24 10:49 RME / HPI RME / HPI narrative: 89-year-old male with a history of hypertension, multiple myeloma in remission since 2012, presents to the emergency room with a chief complaint of epigastric 10 out of 10 pain x 2 days, described as burning-like sensation, severity moderate. Patient had recent chemotherapy last week. Patient denies any fever denies any vomiting denies any black tarry stool. Denies any other complaints no medications taken prior to arrival. Related Data Home Medications ?Medication ?Instructions ?Recorded ?Confirmed amlodipine 5 mg tablet 5 mg PO QDAY High Blood Pressure 06/13/14 09/28/24 #0 tabs aspirin 81 mg chewable tablet 81 mg PO QDAY Heart ##0 06/13/14 09/28/24 Held on 03/16/24. Instructions: Resume on 03/17/24. restart on 03/17/24 oxycodone 5 mg tablet 5 mg PO QID PRN Pain #0 tabs 06/13/14 09/28/24 calcium 500 mg (as 2 tab PO BID 01/02/19 09/28/24 carbonate)-vitamin D3 5 mcg (200 unit) tablet (Calcium 500 + D) potassium chloride 10 mEq 10 meq PO QDAY 08/04/19 09/28/24 tablet,extended release lenalidomide 5 mg capsule 5 mg PO QDAY 03/16/24 09/28/24 finasteride 5 mg tablet 5 mg PO QDAY 04/06/24 09/28/24 Previous Rx's ?Medication ?Instructions ?Recorded dicyclomine 20 mg tablet 20 mg PO QID PRN abdominal pain 11/27/24 #30 tabs famotidine 40 mg tablet (Pepcid) 40 mg PO BID #30 tabs 11/27/24 Allergies Allergy/AdvReac Type Severity Reaction Status Date / Time No Known Allergies Allergy Verified 11/27/24 10:52 Review of Systems Review of Systems Narrative Review of Systems: Review of system reviewed and within normal limits except mentioned in HPI ED Exam Narrative Physical exam: VITAL SIGNS: Reviewed. GENERAL APPEARANCE: Alert and interactive, follows commands, no acute distress, HEAD AND FACE: Non-traumatic. ENT: PERRL, pink conjunctivitis, eyelid no trauma, Mucous membrane moist. NECK: Supple, nontender, no nuchal rigidity. CHEST: No tenderness, no crepitus, no paradoxical movement, no retractions. LUNGS: Clear, well ventilated, symmetric, no rales, no wheezing, no ronchi, no stridor, good breath sounds bilaterally. HEART: Regular rate, regular rhythm, no murmur, no gallops. ABDOMEN: Soft, positive bowel sounds, nondistended, no guarding, epigastric tenderness, no rebound, no masses, RECTAL: Deferred. GENITAL: Deferred. NEUROLOGICAL: Gross motor function intact sensory function intact, Appropriate for age. MUSCULOSKELETAL: low back nontender, full range of motion. EXTREMITIES: Nontender, full range of motion. SKIN: Color pink, dry, no rash, no lacerations, no abrasions, no contusions. LYMPHATICS: Deferred. Course Quality Measures none Orders Category Date Time Status Occult Blood,Stool (Nursing) ONCE Care 11/27/24 12:[address] abdomen pelvis wo con Stat Exams 11/27/24 11:08 Completed CBC Stat Lab 11/27/24 11:35 Completed CMP [Comprehensive Metabolic Panel] Stat Lab 11/27/24 11:35 Completed Lipase Stat Lab 11/27/24 11:35 Completed UA [Urinalysis] Stat Lab 11/27/24 14:34 Completed Urine Culture Stat Lab 11/27/24 14:34 Received Morphine Inj Med 11/27/24 12:23 Discontinued 4 mg IVP X1 ONE Ondansetron Odt [Zofran Odt] Med 11/27/24 11:08 Discontinued 4 mg PO X1 ONE Pantoprazole Inj [Protonix Inj] Med 11/27/24 12:23 Discontinued 40 mg IVP X1 ONE Ringers Lactated 1000 ml [Lactated Ringers] 1,000 ml Med 11/27/24 12:24 Discontinued IV 999 mls/hr Vital Signs Vital signs: Vital Signs Temperature 98.4 F 11/27/24 10:58 Pulse Rate 51 L 11/27/24 10:58 Respiratory Rate 18 11/27/24 10:58 Blood Pressure 106/59 L 11/27/24 10:58 Pulse Oximetry (%) 96 11/27/24 10:58 Oxygen Delivery Method Room Air 11/27/24 10:58 Abdominal Pain [facility] Narrative [facility] Narrative:: 89-year-old male with a history of hypertension, multiple myeloma in remission since 2012, presents to the emergency room with a chief complaint of epigastric 10 out of 10 pain x 2 days, described as burning-like sensation, severity moderate. Patient had recent chemotherapy last week. Patient denies any fever denies any vomiting denies any black tarry stool. Denies any other complaints no medications taken prior to arrival. I did a rectal exam, it tested negative for occult blood. Patient's laboratory workup today all came back unremarkable. 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 I consulted briefly discussed the case with Dr. John, who told me that it is benign, and patient can be discharged advised to return to the emergency room for recurrence or worsening of abdominal pain. Thank you DrSarah Patient appears nontoxic and hemodynamically stable .Decision to discharge the patient. The patient/family was given an opportunity to ask questions and understood their discharge instructions. Discharge instructions specifically included follow up provider and time frame, current and/or new medications and possible side effects, indications for sooner follow up or return to the emergency department, and the expected course of current diagnosis. Patient reports feeling better as well and giving evidence of significant clinical improvement, I believe patient is now a candidate for discharge. Patient data External records reviewed:: None Clinical information provided by:: patient and family Social determinants that could affect healthcare access:: none Patient has the following chronic illnesses:: History of multiple myeloma How is presenting disease/condition affected by chronic disease/condition?: exacerbated by Evaluation data The following diagnostics were reviewed and interpreted by me:: lab results and radiology exam(s) Lab and/or radiology exams considered but not ordered:: None Interpretation Summary: See results [facility] Medications / Prescriptions Medications or Prescriptions considered but not ordered:: None Medication administrations:: Medication Administration History Discontinued Medications Lactated Ringer's (Lactated Ringers) 1,000 mls @ 999 mls/hr IV .Q1H1M ONE Stop: 11/27/24 13:24 Last Infusion: 11/27/24 14:02 Dose: Infused Documented By: Admin: 11/27/24 13:01 Dose: 999 mls/hr Documented By: EF Morphine Sulfate (Morphine Sulf Inj 10 Mg/Ml Vial) 4 mg IVP X1 ONE Stop: 11/27/24 12:24 Last Admin: 11/27/24 13:04 Dose: 4 mg Documented By: EF Ondansetron HCl (Ondansetron Odt 4 Mg Tabrap) 4 mg PO X1 ONE; Protocol Stop: 11/27/24 11:09 Last Admin: 11/27/24 11:12 Dose: 4 mg Documented By: Pantoprazole Sodium (Pantoprazole Inj 40 Mg Vial) 40 mg IVP X1 ONE Stop: 11/27/24 12:24 Last Admin: 11/27/24 13:01 Dose: 40 mg Documented By: EF Protonix IV, Zofran, morphine and IV fluids for hydration Consultations Consultation(s) initiated? (list below): No Diagnosis Differential diagnosis abdominal pain: abdominal pain, diverticulitis and small bowel obstruction Most likely diagnosis given after review of the tests above:: Abdominal pain, gastritis Admission Indicated Admission indicated?: not indicated Admission Request Was there a request for admission?: No Disposition Plan Disposition Plan: Discharge Discharge Attestation Discharge Attestation: The patient and all family members were given an opportunity to ask questions and understood the discharge instructions. Discharge instructions specifically effects, indications for sooner follow up or return to the emergency department, and the expected course of current diagnosis. Patient condition: Stable Discharge Plan Plan Patient Disposition: HOME (Self Care) Discharge Disposition comment: stable Prescriptions/Referrals Prescriptions/Med Rec: New dicyclomine 20 mg tablet 20 mg PO QID PRN (Reason: abdominal pain) Qty: 30 0RF famotidine [Pepcid] 40 mg tablet 40 mg PO BID Qty: 30 0RF No Action finasteride 5 mg tablet 5 mg PO QDAY amlodipine 5 mg Tablet 5 mg PO QDAY Qty: 0 aspirin 81 mg Tablet,Chewable 81 mg PO QDAY Qty: 0 oxycodone 5 mg Tablet 5 mg PO QID PRN (Reason: Pain) Qty: 0 potassium chloride 10 mEq Tablet Extended Release 10 meq PO QDAY calcium carbonate-vitamin D3 [Calcium 500 + D] 500 mg(1,250mg) -200 unit Tablet 2 tab PO BID lenalidomide 5 mg Capsule 5 mg PO QDAY Rx Instructions: swallow whole with glass of water; do not open, crush, chew , break, or dissolve Referrals: Sharon Vasquez, [employer] [Primary Care Provider] - In 1 week Problem List Clinical Impression: Abdominal pain, Gastritis Patient/Caregiver Discharge Instructions Discharge Activity: activity as tolerated Education Materials: Treating Gastritis Additional Instructions: Thank you for the opportunity for serving you today. You are stable for discharged . You are advised to: Follow-up with your PCP in 1 to 2 days Return to ED for worsening of symptoms Increase oral fluids Take medication as prescribed Print Language: Palauan Stand Alone Forms: Leanne Award Info., Patient Portal Info Letter PA/MACHINE TENDER Supervising Physician PA/MACHINE TENDER Supervising Physician: MD Bruce
[2024-11-27] MEDS: RINGERS LACTATED 1000 ML 1,000 ML 999 ML IV (13:01)
[2024-11-27] MEDS: MORPHINE SULF INJ 10 MG/ML VIAL 4 MG IVP (13:04)
[2024-11-27 14:38] LABS: Collection Type, Urine Clean Catch
[2024-11-27 14:55] LABS: Bilirubin,Urine Negative (Negative); Blood,Urine Trace (Negative); Clarity,Urine Clear (Clear/Hazy); Color,Urine Yellow (Lt Yel-Yel); Glucose, Urine Negative (Negative); Hyaline Casts,Urine < 1 /hpf (0-1); Ketones,Urine Trace (Negative); Leukocyte Esterase,Urine Negative (Negative); Nitrite,Urine Negative (Negative); PH,Urine 6.0 (5.0-7.0); Protein,Urine 1+ (Neg - Trace); RBC,Urine 3 /hpf (0-3); Specific Gravity,Urine 1.029 (1.001-1.035); Squamous Epithelial Cell,Urine < 1 /hpf (0-5); Urobilinogen,Urine Negative mg/dL (0.0-1.0); WBC,Urine 5 /hpf (0-5)
[2024-11-27 15:31] VITALS: BP 117/70; PULSE 54; RESP 16; O2SAT 95
== END 2024-11-27 15:32 | disposition home or self-care (01) ==
PROVIDERS: Nurse Practitioner Family; Emergency Provider Family Medicine; PCP Nurse Practitioner Family
DX: K29.70 Gastritis, unspecified, without bleeding (principal); K56.7 Ileus, unspecified
CPT/HCPCS: 36415; 74176; 80053; 81001; 83690; 85025; 87086; 96361; 96374; 96375; 99283; J2270; J2470; J7120; Q0162

== ENCOUNTER → 2025-03-23 | Outpatient (CLI) | payer MEDICARE, OTHER, SELFPAY ==
--- NOTE | 2025-03-23 11:45 | XR_ITS ---
Examination: CT lumbar spine, without contrast. 2-D sagittal reconstructions. 2-D coronal reconstructions. 3-D reconstructions. Date and time of exam: March 23, 2025 INDICATIONS: Diagnosis multiple myeloma not having achieved remission, chronic lower back pain 14 years CTDI: vol (mGy): 12 DLP: (mGycm): 388 Technique: Multiple 1.25 mm axial sections of the lumbar spine without intravenous contrast have been obtained. 2-D sagittal and coronal reconstructions have been obtained. 3-D reconstructions have been obtained. Low dose protocols were performed. One or more of the following dose reduction techniques were used; automated exposure control, adjustment of the mA and/or KV according to patient size, use of iterative reconstruction technique. Findings: Severe osteopenia Severe chronic osteoporotic compressions L1 and T12, kyphoplasty L1 Retropulsion compressed L1 vertebral body at least 5 mm L5-S1 no disc protrusion L4-L5 no disc protrusion L3-L4 no disc protrusion L2-L3 no disc protrusion L1-L2 retropulsion compressed L1 vertebral body 5 mm posteriorly IMPRESSION: Severe osteopenia Osteoporotic severe compressions L1, T12 Kyphoplasty L1 Retropulsion posterior margin L1 vertebral body 5 mm
== END | disposition home or self-care (01) ==
PROVIDERS: PCP Student in an Organized Health Care Education/Training Program; Referring Provider Student in an Organized Health Care Education/Training Program; Visit Provider Student in an Organized Health Care Education/Training Program
DX: M85.88 Other specified disorders of bone density and structure, other site (principal); M81.0 Age-related osteoporosis without current pathological fracture; C90.00 Multiple myeloma not having achieved remission
CPT/HCPCS: 72131